=== PATIENT | male | born 1955 | race Caucasian/White ===

== ENCOUNTER 2019-07-03 19:59 | Emergency (ER) | payer OTHER, SELFPAY ==
--- NOTE | ~2019-07-03 | CT_ITS ---
EXAMINATION: CT brain wo con DATE: 07/03/2019 22:43 INDICATION: Syncope. Possible seizure. TECHNIQUE: Computed tomography (CT) of the head was performed without intravenous contrast. The mA wa s adjusted according to patient size. Iterative reconstruction technique was employed. Exam dose: 60 5.33 mGy-cm total exam DLP. COMPARISON: None FINDINGS: No intracranial mass lesion or hemorrhage or evidence of cerebrovascular accident. No midli ne shift or mass effects. No subdural or epidural hematoma. The right mastoid air cells are partially opacified. The left mastoid air cells are clear. The includ ed paranasal sinuses are normally developed and aerated. No fracture or bone destruction of the cranial vault. IMPRESSION: No acute intracranial finding Reviewed, dictated and finalized at Location [facility]. Reviewed, dictated and finalized at location A. TED CIRCUIT BOARD DESIGNER
[2019-07-03 20:05] VITALS: BP 103/58; PULSE 79; RESP 18; TEMP 36.9; O2SAT 100
--- NOTE | 2019-07-03 20:07 | ECG_ITS ---
Measurements Intervals [place] Rate: 68 P: 65 ID: 143 QRS: 45 QRSD: 109 T: 32 QT: 402 QTc: 430 Interpretive Statements SINUS RHYTHM NORMAL ECG Electronically Signed On 07-04-2019 8:05:15 BANK REPRESENTATIVE by Jorge Daly D.O.
--- NOTE | 2019-07-03 20:07 | ED.SYNCOPE ---
HPI - Syncope General Chief Complaint: Syncope Stated Complaint: syncope Time Seen by Provider: 07/03/19 20:01 Source: patient, family and RN notes reviewed Mode of arrival: other Limitations: no limitations History of Present Illness HPI narrative: Pt is a 63 y/o male who presents to the ED with c/o syncope that occurred earlier this afternoon. Pt notes that he had 2 drinks of EtOH and had 3-4 puffs of Marijuana. Pt states that he stood up to go to the bathroom and that is all he remembers. Pt's girlfriend states that he has smoked Marijuana before with his girlfriend for the past month and she notes that he has never had his sx before. Pt also reports weakness and nausea, but denies a fever, SOB, chest tightness, and CP. Pt notes that he takes ASA daily. MD complaint: loss of consciousness Context: standing up, alcohol use and illicit drug use Injuries sustained associated with event: none Current symptoms: nausea and weakness Related Data Allergies Allergy/AdvReac Type Severity Reaction Status Date / Time Penicillins Allergy Unknown Unknown Verified 02/24/18 07:49 Review of Systems Review of Systems: All systems reviewed & are unremarkable except as noted in HPI and below Constitutional: Constitutional: Denies fever(s) Cardiovascular: Cardiovascular: Denies chest pain and Denies other (chest tightness) Respiratory: Respiratory: Denies dyspnea Gastrointestinal: Gastrointestinal: Reports nausea Neurologic: Reports syncope and Reports weakness PMFSH Past Medical History Medical History (Updated 07/03/19 @ 23:48 by Hemant Ahn MD) Asthma Hyperlipidemia Seasonal allergies Surgical History Surgical History (Updated 07/03/19 @ 21:28 by Petra Ferrara) H/O eye surgery Family History Family History (Updated 02/26/18 @ 14:35 by DOCTOR UNKNOWN) Grandparent Diabetes mellitus Family history of alcoholism Family history of cardiovascular disease Mother Hypertension Cerebrovascular accident Father Family history of alcoholism Family history of cardiovascular disease Social History Social History (Updated 07/03/19 @ 20:54 by Petra Ferrara) Smoking status: Never smoker Second hand tobacco smoke exposure: No Alcohol intake: current Substance use: current Substance use type: marijuana Gender identity (if verbalized by the patient): Male Exam Const: General: healthy appearing, no acute distress and well developed Nutritional Appearance: well nourished Orientation/consciousness: patient oriented x3 (alert) and Other orientation findings (Alert) Limitations: no limitations HENMT: Head: normocephalic and atraumatic Ears: external ears normal General nose exam: No nasal discharge present and no epistaxis Face and sinus: face symmetric Mouth: Yes lip normal, Yes tongue normal and Yes moist mucous membranes Throat: other (No exudate, no erythema) Eyes: Conjunctivae: conjunctivae normal Sclera: sclerae normal EOM: EOMs intact bilaterally Neck: Neck: full ROM, no lymphadenopathy and supple Thyroid: thyroid normal Chest: Chest palpation & inspection: no tenderness Resp: Effort & Inspection: normal respiratory effort Auscultation: clear to auscultation bilaterally, no rales, no rhonchi, no wheezes and other (breath sounds equal) Cardio: Rate: regular rate Rhythm: regular rhythm Heart sounds: no gallops and no murmurs GI: Inspection: non-distended GI Palp: No abdominal tenderness and Yes Soft to palpation Auscultation: other (bowel sounds present) : General: Yes no CVA tenderness Back/Spine/Pelvis: Back: no CVA tenderness Thoracic/Lumbar Spine: thoracic and lumbar spine normal to inspection Skin: General skin exam: normal color and no rashes or lesions noted Neuro: General: patient oriented x3 (alert), moves all extremities and no focal motor deficits Cranial nerves: Yes facial symmetry Speech: normal speech Motor exam (neuro): Motor abnormalities not
[2019-07-03 20:09] VITALS: O2SAT 98
[2019-07-03 20:22] VITALS: BP 104/67; BP 111/84; BP 112/61; PULSE 67; PULSE 75; PULSE 78
[2019-07-03 20:49] LABS: Basophils Percent Auto 0.5 % (0.2-1.2); Eosinophils Absolute Auto 0.1 K/mm3 (0-0.3); Eosinophils Percent Auto 1.2 % (0-4.4); Hemoglobin 13.3 g/dL (14.0-18.0); Immature Granulocyte Absolute 0.02 K/mm3 (0.00-0.031); Immature Granulocyte Percent A 0.4 % (0-0.5); Lymphocytes Absolute Auto 1.39 K/mm3 (0.9-3.2); Lymphocytes Percent Auto 24.6 % (18.3-44.2); Mean Corpuscular HGB Conc 34.1 g/dl (32-36); Mean Corpuscular Hemoglobin 31.2 pg (26-34); Mean Corpuscular Volume 91.5 fl (80-100); Mean Platelet Volume 9.5 fl (7.4-10.4); Monocytes Absolute Auto 0.5 K/mm3 (0.1-0.6); Monocytes Percent Auto 8.8 % (2.6-8.5); Neutrophils Absolute Auto 3.7 K/mm3 (1.3-6.7); Neutrophils Percent Auto 64.5 % (45.5-73.1); Platelet Count Result 252 k/mm3 (150-375); Red Blood Count 4.26 M/mm3 (4.6-6.20); Red Cell Distribution Width 12.5 % (11.5-14.5); White Blood Count 5.7 K/mm3 (4.5-10.0)
[2019-07-03 21:00] LABS: Alanine Aminotransferase 25 U/L (4-50); Albumin Level 4.3 g/dL (3.5-5.1); Alkaline Phosphatase 46 U/L (38-126); Aspartate Amino Transferase 32 U/L (17-59); Bilirubin,Total 0.3 mg/dL (0.2-1.3); Blood Urea Nitrogen 18 mg/dL (9-20); Calcium 8.7 mg/dL (8.4-10.2); Carbon Dioxide 27 mmol/L (22-30); Chloride 98 mmol/L (98-107); Estimated Glomerular Filt Rate 56; Glucose 135 mg/dL (75-110); Potassium 3.8 mmol/L (3.4-5.0); Sodium 138 mmol/L (137-145)
[2019-07-03 21:02] LABS: Ethanol < 10 mg/dL (<10)
[2019-07-03 21:12] LABS: Troponin I < 0.012 ng/mL (0.000-0.034)
[2019-07-03 21:23] VITALS: BP 124/76; PULSE 78; RESP 16; O2SAT 100
[2019-07-03 22:11] VITALS: BP 120/68; PULSE 85; RESP 20; O2SAT 98
[2019-07-03 22:46] LABS: Troponin I < 0.012 ng/mL (0.000-0.034)
[2019-07-03 23:41] VITALS: BP 126/66; PULSE 84; RESP 18; O2SAT 96
== END 2019-07-04 00:07 | disposition home or self-care (01) ==
PROVIDERS: Emergency Provider Emergency Medicine
DX: R55 Syncope and collapse (principal); J45.909 Unspecified asthma, uncomplicated; E78.5 Hyperlipidemia, unspecified
CPT/HCPCS: 36415; 70450; 80053; 80307; 84484; 85025; 93005; 99284

== ENCOUNTER 2022-04-02 13:55 | Outpatient (CLI) | payer MEDICARE, SELFPAY ==
--- NOTE | ~2022-04-02 | XR_ITS ---
EXAMINATION: XR knee RT min 4V DATE: 04/02/2022 14:53 INDICATION: Right knee pain. Injury. TECHNIQUE: 4 views of right knee were obtained. COMPARISON: None. FINDINGS: Bone alignment is normal. No fracture. There is mild tricompartmental osteoarthritis charac terized by tiny osteophytes. No joint space narrowing. No knee joint effusion. IMPRESSION: 1. Mild right knee osteoarthritis. Reviewed, dictated and finalized at location A. ISH LANGUAGE LECTURER
== END 2022-04-02 13:56 | disposition home or self-care (01) ==
PROVIDERS: PCP Family Medicine; Visit Provider Physician Assistant
DX: M25.569 Pain in unspecified knee (principal); M17.11 Unilateral primary osteoarthritis, right knee
CPT/HCPCS: 73564

== ENCOUNTER 2022-04-24 14:18 | Outpatient (CLI) | payer MEDICARE, SELFPAY ==
--- NOTE | ~2022-04-24 | XR_ITS ---
EXAMINATION: XR chest 2V 04/24/2022 14:34 INDICATION: Acute lower respiratory infection PROCEDURE: PA and lateral views of the chest COMPARISON: No prior studies for comparison. FINDINGS: The lungs are clear. The cardiomediastinal silhouette is within normal limits. There are no pleural effusions. There is no pneumothorax suspected. IMPRESSION: 1: NO ACUTE CARDIOPULMONARY DISEASE. Reviewed, dictated and finalized at location A. ICATION SUPERVISOR
== END 2022-04-24 14:19 | disposition home or self-care (01) ==
LOC: ANHIMG 14:20
PROVIDERS: PCP Family Medicine; Visit Provider Physician Assistant
DX: J22 Unspecified acute lower respiratory infection (principal)
CPT/HCPCS: 71046

== ENCOUNTER 2022-10-30 07:47 | Outpatient (CLI) | payer MEDICARE, SELFPAY ==
--- NOTE | 2022-10-30 11:29 | WPDPFTINT ---
PFT Procedure Performed PFT Procedure Performed Flow Vol Loop Spirometry w/o Bronchodil PFT Interpretation This is a pulmonary function test with spirometry, plethysmography and diffusing capacity. The test was performed and results interpreted in accordance with the 2019 and 2005 ATS/ERS Task Force guidelines respectively using the Global Lung Function Initiative-2012 reference equations. Patient demonstrated good effort and cooperation. Reproducibility criteria were met. The quality of the spirometry maneuver was Grade A. Findings: Spirometry: There is decreased maximal expiratory airflow at all lung volumes with concave expiratory flow tracing. The contour the inspiratory flow tracing is normal. The FVC is 5.24 L, 111% predicted. The FEV1 is 3.08 L, 86% predicted. The FEV1: FVC ratio is 59%. Impression: There is a mild obstructive abnormality with a normal FEV1. There are no prior studies for comparison
== END 2022-10-30 07:48 | disposition home or self-care (01) ==
PROVIDERS: PCP Family Medicine; Visit Provider Family Medicine
DX: J45.20 Mild intermittent asthma, uncomplicated (principal)
CPT/HCPCS: 94375

== ENCOUNTER → 2023-04-08 10:38 | Outpatient (CLI) | payer MEDICARE, SELFPAY ==
--- NOTE | ~2023-04-08 | CT_ITS ---
Non-contrast Head CT History: Headache COMPARISON: 07/03/2019 Technique: Axial non-contrast imaging of the brain was performed. Dose reduction technique was used on this scan by utilizing automated exposure control and iterative reconstruction technique. The dose -length product (DLP) was 599.57 mGy-cm. Findings: There is no evidence of intracranial hemorrhage, mass lesion, or acute infarct. Brain par enchyma appears normal. The ventricles and subarachnoid spaces are normal in size. The calvarium ap pears normal. The visualized paranasal sinuses and mastoid air cells are clear. Impression: No significant abnormality seen. Reviewed, dictated and finalized at location . O CASTER Impression: No significant abnormality seen.
== END ==
PROVIDERS: PCP Physician Assistant Medical; Visit Provider Physician Assistant Medical
DX: G43.909 Migraine, unspecified, not intractable, without status migrainosus (principal)
CPT/HCPCS: 70450

== ENCOUNTER → 2023-07-16 08:38 | Outpatient (CLI) | payer MEDICARE, SELFPAY ==
--- NOTE | ~2023-07-16 | XR_ITS ---
EXAMINATION: XR chest 2V DATE: 07/16/2023 08:45 INDICATION: History of pneumonia TECHNIQUE: PA and lateral views of the chest are obtained. COMPARISON: 04/24/2022 FINDINGS: The lungs are free of acute opacities. No pleural effusion or pneumothorax. The cardiomedia stinal silhouette is normal. There is mild thoracic spondylosis. IMPRESSION: 1. No acute cardiopulmonary abnormality. Reviewed, dictated and finalized at location B. CY MANAGER
== END ==
PROVIDERS: PCP Physician Assistant; Visit Provider Physician Assistant
DX: R05.9 Cough, unspecified (principal)
CPT/HCPCS: 71046

== ENCOUNTER 2023-12-26 09:38 | Outpatient (CLI) | payer MEDICARE, SELFPAY ==
--- NOTE | ~2023-12-26 | XR_ITS ---
EXAMINATION: XR cervical spine 4-5V DATE: 12/26/2023 09:56 INDICATION: Neck pain. TECHNIQUE: 6 views of cervical spine were obtained. COMPARISON: Cervical spine radiographs 09/24/2018 FINDINGS: There is 2 mm retrolisthesis of C5 on C6. There is no abnormal motion with flexion or exten charlee. Vertebral body heights are normal. There is moderately decreased disc height at C4-C5, severely decreased disc height at C5-C6, and moderately decreased disc height at C6-C7. There is multilevel u ncovertebral joint osteoarthritis, severe bilaterally at C5-C6 and C6-C7. There is multilevel facet j oint osteoarthritis, severe at C7-T1. There is mild central canal stenosis at C4-C5, C5-C6, and C6-C7 . No prevertebral soft tissue swelling. IMPRESSION: 1. Severe cervical spondylosis. Reviewed, dictated and finalized at location A.
== END 2023-12-26 09:39 ==
LOC: MICIMG 09:39
PROVIDERS: PCP Family Medicine; Visit Provider Physician Assistant Medical
DX: M43.02 Spondylolysis, cervical region (principal)
CPT/HCPCS: 72050

== ENCOUNTER 2024-04-10 12:10 | Emergency (ER) | payer MEDICARE, SELFPAY ==
[2024-04-10] VITALS (7 sets, daily range): BP systolic 117–148; BP diastolic 70–82; PULSE 78–117; RESP 17–19; TEMP 36.7–37.3; O2SAT 98–100
--- NOTE | ~2024-04-10 | XR_ITS ---
EXAMINATION: XR chest 2V DATE: 04/10/2024 12:52 INDICATION: Epigastric abdominal pain. TECHNIQUE: Frontal and lateral views of the chest were obtained. COMPARISON: Chest 2 views 07/16/2023 FINDINGS: There is no pneumonia, pleural effusion, or pneumothorax. The heart size is normal. IMPRESSION: 1. No acute cardiopulmonary disease. Reviewed, dictated and finalized at location A. FER OPERATOR
--- NOTE | 2024-04-10 12:14 | ECG_ITS ---
Test Date: 2024-04-10 12:20:31 Measurements Intervals [place] Rate: 72 P: 17 TN: 153 QRS: 50 QRSD: 106 T: 44 QT: 385 QTc: 422 Interpretive Statements SINUS RHYTHM BASELINE WANDER- III, AVL, AVF, V5-V6 NORMAL ECG No previous ECG available for comparison Electronically Signed On 04-10-2024 16:25:45 AVID EDITOR by Jorge Daly D.O.
[2024-04-10] MEDS: ASPIRIN 81 MG CHEWABLE TABLET 324 MG PO (12:22)
[2024-04-10 12:30] LABS: Basophils Percent Auto 0.6 % (0.2-1.2); Eosinophils Absolute Auto 0.2 K/mm3 (0-0.3); Eosinophils Percent Auto 2.1 % (0-4.4); Hematocrit 41.4 % (42.0-52.0); Hemoglobin 14.7 g/dL (14.0-18.0); Immature Granulocyte Absolute 0.02 K/mm3 (0.00-0.031); Immature Granulocyte Percent A 0.3 % (0-0.5); Lymphocytes Absolute Auto 2.94 K/mm3 (0.9-3.2); Lymphocytes Percent Auto 40.4 % (18.3-44.2); Mean Corpuscular HGB Conc 35.5 g/dl (32-36); Mean Corpuscular Hemoglobin 31.4 pg (26-34); Mean Corpuscular Volume 88.5 fl (80-100); Mean Platelet Volume 9.2 fl (7.4-10.4); Monocytes Absolute Auto 0.7 K/mm3 (0.1-0.6); Monocytes Percent Auto 10.2 % (2.6-8.5); Neutrophils Absolute Auto 3.4 K/mm3 (1.3-6.7); Neutrophils Percent Auto 46.4 % (45.5-73.1); Platelet Count Result 301 k/mm3 (150-375); Red Blood Count 4.68 M/mm3 (4.6-6.20); Red Cell Distribution Width 12.4 % (11.5-14.5); White Blood Count 7.3 K/mm3 (4.5-10.0)
[2024-04-10 12:40] LABS: Alanine Aminotransferase 41 U/L (6-50); Albumin Level 4.9 g/dL (3.5-5.1); Alkaline Phosphatase 67 U/L (38-126); Anion Gap 8 mmol/L (4-12); Aspartate Amino Transferase 63 U/L (17-59); Bilirubin,Total 0.8 mg/dL (0.2-1.3); Blood Urea Nitrogen 19 mg/dL (9-20); Calcium 9.1 mg/dL (8.4-10.2); Carbon Dioxide 25 mmol/L (22-30); Chloride 104 mmol/L (98-107); Estimated CRCL calculation 86 ml/min; Estimated Glomerular Filt Rate > 60; Glucose 104 mg/dL (65-110); Lipase 108 U/L (23-300); Potassium 4.2 mmol/L (3.4-5.0); Sodium 137 mmol/L (137-145)
[2024-04-10 12:45] LABS: INR 0.9; Partial Thromboplastin Time 26.6 Seconds (22.3-36.8); Prothrombin Time 12.8 Seconds (11.1-14.7)
[2024-04-10 12:52] LABS: Troponin I < 0.012 ng/mL (0.000-0.034)
--- NOTE | 2024-04-10 14:49 | ED_ITS ---
HPI - Chest Pain General Chief Complaint: Chest Pain Stated Complaint: epigastric pain Time Seen by Provider: 04/10/24 13:32 History of Present Illness HPI narrative: 68-year-old male with a history of hypertension presenting with epigastric pain. States several hours ago he developed sharp epigastric pain that was worse with movements. No shortness of breath or lightheadedness. Associated with nausea. States that eating or drinking anything sounds foul. States that the pain has improved. States he has been struggling with heartburn lately. Related Data Home Medications Medication Instructions Recorded Confirmed beta vvkgbxun-Q-E-lutein-min #29 tablet PO 07/05/19 07/21/23 5,000 unit-60 mg-30 unit-2 mg tablet (Macuvite With Lutein) multivitamin 1 tablet PO DAILY 07/05/19 07/21/23 cetirizine 10 mg tablet (Zyrtec) 10 mg PO DAILY PRN 07/12/21 07/21/23 Allergies Allergy/AdvReac Type Severity Reaction Status Date / Time Penicillins Allergy Unknown Unknown Verified 12/25/23 13:36 mometasone furoate AdvReac Severe chest Verified 12/25/23 13:36 [From Asmanex Twisthaler] burning Review of Systems Review of Systems: All systems reviewed & are unremarkable except as noted in HPI and below PMFSH Past Medical History Medical History Asthma Bilateral hearing loss got hearing aids in August 2021 BMI 30.0-30.9,adult CKD (chronic kidney disease) stage 3, GFR 30-59 ml/min COPD (chronic obstructive pulmonary disease) CRISTINA (generalized anxiety disorder) Hyperlipidemia Pneumonia Primary hypertension Seasonal allergies Surgical History Surgical History H/O eye surgery Family History Family History Grandparent Diabetes mellitus Family history of alcoholism Family history of cardiovascular disease Mother Hypertension Cerebrovascular accident Father Family history of alcoholism Family history of cardiovascular disease Son Psoriatic arthritis Social History Social History Smoking status: Never smoker Second hand tobacco smoke exposure: No Alcohol intake: current Alcohol use details: once a month, a few beers Substance use: current Substance use type: marijuana Other substance usage details: edibles, once a month at most Lack of Transportation: No Lack of Food: Never True Current Housing: I Have Housing Concerned About Future Housing: No Difficulty Paying Gas/Electric Bills: No Difficulty Paying for Meds: No Currently Unemployed: No Education: Associate Degree Difficulty w/ Childcare or Family Care: No Occupation/Education: retired Gender identity (if verbalized by the patient): Male Exam Narrative: GENERAL: Well-appearing, in no acute distress, pleasant and cooperative HEAD: Normocephalic, atraumatic. EYES: PERRLA and EOMI. ENT: Grossly unremarkable NECK: Supple. CHEST: No respiratory distress. HEART: Regular rate and rhythm ABDOMEN: Soft, + mild epigastric tenderness, no guarding or rebound EXTREMITIES: Normal range of motion. SKIN: Warm, dry, no rash. NEURO: Alert and oriented x3. PSYCH: Normal mood and affect. Course Vital Signs Vital signs: Vital Signs Pulse Rate 78 04/10/24 12:22 Temperature 99.1 F 04/10/24 18:37 Pulse Rate 117 H 04/10/24 18:43 Respiratory Rate 19 04/10/24 18:37 Blood Pressure 117/71 04/10/24 18:37 Pulse Oximetry 100 04/10/24 18:37 MDM - Chest Pain MDM Narrative Medical decision making narrative: 68-year-old male presenting with epigastric pain. Vitals are stable. Exam remarkable for the above. EKG per my interpretation shows normal sinus rhythm, no ST elevations or depressions. Blood work without abnormalities. Troponins undetectable x3. Patient given IV Pepcid and a GI cocktail. States that it did help his epigastric discomfort but then he had an episode of vomiting. Received some Zofran with improvement. Chest x-ray without acute abnormalities. Discussed the reassuring workup with the patient. He feels comfortable going home. I suspect esophagitis/gastritis as the cause of his symptoms. Will get him started on daily famotidine and advised close PCP follow-up. Strict return precautions given. Discharged in stable condition. Differential Diagnosis Differential diagnosis: Likely atypical chest pain, costochondritis, chest pain and other (Epigastric pain, gastritis, esophagitis) Medical Records Data Attestation: I reviewed the patient's medical records. Lab Data Attestation: I reviewed the patient's lab results. 04/10/24 12:24 04/10/24 12:24 Labs: Lab Results 04/10/24 04/10/24 04/10/24 Range/Units 12:24 15:42 18:29 WBC 7.3 (4.5-10.0) K/mm3 RBC 4.68 (4.6-6.20) M/mm3 Hgb 14.7 (14.0-18.0) g/dL Hct 41.4 L (42.0-52.0) % MCV 88.5 (80-100) fl MCH 31.4 (26-34) pg MCHC 35.5 (32-36) g/dl RDW 12.4 (11.5-14.5) % Plt Count 301 (150-375) k/mm3 MPV 9.2 (7.4-10.4) fl Immature Gran % (Auto) 0.3 (0-0.5) % Neut % (Auto) 46.4 (45.5-73.1) % Lymph % (Auto) 40.4 (18.3-44.2) % [place] % (Auto) 10.2 H (2.6-8.5) % Eos % (Auto) 2.1 (0-4.4) % Baso % (Auto) 0.6 (0.2-1.2) % Lymph # (Auto) 2.94 (0.9-3.2) K/mm3 [place] # (Auto) 0.7 H (0.1-0.6) K/mm3 Eos # (Auto) 0.2 (0-0.3) K/mm3 Baso # (Auto) 0.0 (0.0-0.1) K/mm3 Abs Immat Gran (auto) 0.02 (0.00-0.031) K/mm3 Absolute Neuts (auto) 3.4 (1.3-6.7) K/mm3 Absolute Nucleated RBC 0.000 (0.0-0.012) K/mm3 Nucleated RBC % 0.0 (0.0-0.2) % PT 12.8 (11.1-14.7) Seconds INR 0.9 APTT 26.6 (22.3-36.8) Seconds Sodium 137 (137-145) mmol/L Potassium 4.2 (3.4-5.0) mmol/L Chloride 104 (98-107) mmol/L Carbon Dioxide 25 (22-30) mmol/L Anion Gap 8 (4-12) mmol/L BUN 19 (9-20) mg/dL Creatinine 0.80 (0.7-1.3) mg/dL Estim Creat Clear Calc 86 ml/min Estimated GFR > 60 (59 - ) Glucose 104 (65-110) mg/dL Calcium 9.1 (8.4-10.2) mg/dL Total Bilirubin 0.8 (0.2-1.3) mg/dL AST 63 H (17-59) U/L ALT 41 (6-50) U/L Alkaline Phosphatase 67 (38-126) U/L Troponin I < 0.012 < 0.012 < 0.012 (0.000-0.034) ng/mL Total Protein 8.0 (6.3-8.2) g/dL Albumin 4.9 (3.5-5.1) g/dL Lipase 108 (23-300) U/L Imaging Data Radiologist's impression: ITS Impressions Chest X-Ray 04/10/24 13:00 IMPRESSION: 1. No acute cardiopulmonary disease. Critical Care Time Critical Care Time Critical Care Time: No Discharge Plan Discharge Clinical Impression: Epigastric pain, Nausea & vomiting Patient Disposition: Home, Self-Care Condition: Stable Instructions: Antibiotic Form, Epigastric Pain (ED) Additional Instructions: Your workup today is reassuring. We are starting you on a daily antacid to help with your symptoms. Please follow-up closely with your PCP. If your symptoms worsen or other concerning symptoms arise, please return to the ER. Prescriptions: New famotidine [Pepcid] 20 mg tablet 20 mg PO DAILY Qty: 30 0RF ondansetron 4 mg tablet,disintegrating 4 mg PO Q8H PRN (Reason: nausea and vomiting) Qty: 14 0RF No Action multivitamin Tablet 1 tablet PO DAILY Macuvite With Lutein 5,000-60-30-2 ewzy-hw-isst-mg tablet PO cetirizine [Zyrtec] 10 mg tablet 10 mg PO DAILY PRN albuterol sulfate [Ventolin HFA] 90 mcg/actuation HFA aerosol inhaler 1 inh inhalation Q4H PRN (Reason: shortness of breath or wheezing) Qty: 8.5 3RF (DME) Airzone Peak Flow Meter Device See Rx Instructions .Route Qty: 1 0RF Rx Instructions: As directed (DME) Aerochamber MV Spacer See Rx Instructions .ROUTE .MEDSUPPLY Qty: 1 0RF Rx Instructions: As directed albuterol sulfate 2.5 mg /3 mL (0.083 %) solution for nebulization 2.5 mg inhalation Q4-6H PRN (Reason: bronchospasm) Qty: 75 0RF fluticasone propion-salmeterol [Advair HFA] 230-21 mcg/actuation HFA aerosol inhaler 2 puff inhalation BID Qty: 12 6RF lisinopril 10 mg tablet See Rx Instructions .ROUTE .COMPLEX Qty: 90 4RF Dose Instruction: Take 1 tablet by mouth once daily Rx Instructions: Take 1 tablet by mouth once daily montelukast 10 mg tablet 10 mg PO QHS Qty: 30 3RF Follow-up/Referrals: Dana Ritchie MD [Primary Care Provider] -
[2024-04-10] MEDS: FAMOTIDINE 20 MG/2 ML VIAL IV PUSH (15:07)
[2024-04-10] MEDS: BELLADONNA ALK/PHENOB ELIX 10 ML, MAG HYDROX/ALUMINUM HYD/SIMETH 30 ML, LIDOCAINE HCL 2... PO (15:07)
--- NOTE | 2024-04-10 15:33 | ECG_ITS ---
Test Date: 2024-04-10 15:42:03 Measurements Intervals [place] Rate: 90 P: 59 ME: 158 QRS: 35 QRSD: 96 T: 44 QT: 340 QTc: 417 Interpretive Statements SINUS RHYTHM BASELINE ARTIFACT- I, II, III, AVR, AVL, AVF, V1-V3 NORMAL ECG Compared to ECG 04/10/2024 12:20:31 No significant changes Electronically Signed On 04-10-2024 16:34:11 FORMULA CHECKER by Jorge Daly D.O.
[2024-04-10 16:09] LABS: Troponin I < 0.012 ng/mL (0.000-0.034)
[2024-04-10] MEDS: SODIUM CHLORIDE 0.9% IV 1,000 ML 999 ML IV CONT (16:29)
[2024-04-10] MEDS: ONDANSETRON INJ 4 MG/2 ML VIAL IV PUSH ×2 (16:30→19:14)
--- NOTE | 2024-04-10 18:34 | ECG_ITS ---
Test Date: 2024-04-10 18:39:29 Measurements Intervals [place] Rate: 107 P: 29 CO: 120 QRS: 24 QRSD: 85 T: 46 QT: 314 QTc: 420 Interpretive Statements SINUS TACHYCARDIA BASELINE ARTIFACT- I, III ABNORMAL ECG Compared to ECG 04/10/2024 15:42:03 HEART RATE HAS INCREASED Electronically Signed On 04-10-2024 20:49:27 MACHINE ICER by Jorge Daly D.O.
[2024-04-10 18:55] LABS: Troponin I < 0.012 ng/mL (0.000-0.034)
== END 2024-04-10 19:58 | disposition home or self-care (01) ==
PROVIDERS: Emergency Medicine; Emergency Provider Emergency Medicine; PCP Family Medicine
DX: R10.13 Epigastric pain (principal); R11.2 Nausea with vomiting, unspecified; I12.9 Hypertensive chronic kidney disease with stage 1 through stage 4 chronic kidney disease, or unspecified chronic kidney disease; N18.30 Chronic kidney disease, stage 3 unspecified; J44.9 Chronic obstructive pulmonary disease, unspecified; E78.5 Hyperlipidemia, unspecified; Z87.01 Personal history of pneumonia (recurrent); R00.0 Tachycardia, unspecified
CPT/HCPCS: 36415; 71046; 80053; 83690; 84484; 85025; 85610; 85730; 93005; 96361; 96374; 96375; 96376; 99284; A9270; J2405; J7030

== ENCOUNTER 2024-04-13 12:03 | Outpatient (CLI) | payer MEDICARE, SELFPAY ==
[2024-04-13 13:14] LABS: Influenza A QL RT-PCR Negative (Negative); Influenza B QL RT-PCR Negative (Negative); RSV RNA, RT-PCR Negative (Negative); SARS-CoV-2 RNA PCR Negative (Negative)
== END 2024-04-13 12:04 | disposition home or self-care (01) ==
LOC: ANHLAB 12:04
PROVIDERS: PCP Family Medicine; Visit Provider Student in an Organized Health Care Education/Training Program
DX: R09.89 Other specified symptoms and signs involving the circulatory and respiratory systems (principal); R05.9 Cough, unspecified
CPT/HCPCS: 87637

== ENCOUNTER 2024-06-16 00:41 | Day surgery (SDC) | payer MEDICARE, SELFPAY ==
[2024-06-01 11:29] VITALS: BMI 29.2
[2024-06-16 10:06] VITALS: BP 136/75; PULSE 79; RESP 18; TEMP 36.2; O2SAT 99
--- NOTE | 2024-06-16 10:10 | WPDANESEPP ---
Anes - Eval Pre Procedure Procedure: Operation Date: 06/16/24 11:30 Proposed Procedures p Esophagogastroduodenoscopy - Cliff Falcon MD Date/Time: 06/16/24 10:10 Surgeon: Ezekiel Pre Op Diagnosis: epigastric pain, lft upper quad pain, nausea w/ Patient Data Age: 68 Gender: M Height: 1.83 m Weight: 101.5 kg Last Vital Signs Temp 97.1 F L 06/16/24 10:06 Pulse 79 06/16/24 10:06 Resp 18 06/16/24 10:06 BP 136/75 06/16/24 10:06 Pulse Ox 99 06/16/24 10:06 O2 Del Method Room Air 06/16/24 10:06 Allergies Allergy/AdvReac Type Severity Reaction Status Date / Time Penicillins Allergy Unknown Unknown Verified 06/16/24 10:05 mometasone furoate (From AdvReac Severe chest Verified 06/16/24 10:05 Asmanex Twisthaler) burning Home Medications ?Medication ?Instructions ?Recorded ?Confirmed ?Type beta liosjcau-Y-V-lutein-min #29 1 tablet PO DAILY 07/05/19 06/16/24 History 5,000 unit-60 mg-30 unit-2 mg tablet (Macuvite With Lutein) multivitamin 1 tablet PO DAILY 07/05/19 06/16/24 History inhalational spacing device #1 ea 10/29/19 04/13/24 Rx (Aerochamber MV spacer) cetirizine 10 mg tablet (Zyrtec) 10 mg PO DAILY PRN allergy symptoms 07/12/21 06/16/24 History albuterol sulfate 90 mcg/actuation 1 inh inhalation Q4H PRN shortness 11/06/21 06/01/24 Rx aerosol inhaler (Ventolin HFA) of breath or wheezing #8.5 grams peak flow meter (Airzone Peak Flow #1 ea 09/11/22 04/13/24 Rx Meter) albuterol sulfate 2.5 mg/3 mL 2.5 mg (3 mL) inhalation Q4-6H PRN 07/11/23 06/01/24 Rx (0.083 %) solution for nebulization bronchospasm #75 mL ondansetron 4 mg disintegrating 4 mg PO Q8H PRN nausea and 04/10/24 06/01/24 Rx tablet vomiting #14 tabs omeprazole 20 mg capsule,delayed 20 mg PO DAILY #30 caps 04/13/24 06/16/24 Rx release fluticasone propionate 230 2 puff inhalation BID #12 grams 05/20/24 06/16/24 Rx mcg-salmeterol 21 mcg/actuation HFA inhaler (Advair HFA) montelukast 10 mg tablet 10 mg PO QHS #30 tabs 05/20/24 06/16/24 Rx lisinopril 5 mg tablet 10 mg PO DAILY 06/01/24 06/16/24 History Patient hx anesthesia problems: none Family hx anesthesia problems: none Results Review: All pre-operative results and documents have been reviewed as part of the pre-operative evaluation. [facility] Past Medical History Medical History YVONNE (obstructive sleep apnea) COPD (chronic obstructive pulmonary disease) Pneumonia Bilateral hearing loss got hearing aids in August 2021 BMI 30.0-30.9,adult Primary hypertension CRISTINA (generalized anxiety disorder) CKD (chronic kidney disease) stage 3, GFR 30-59 ml/min Asthma Seasonal allergies Hyperlipidemia Surgical History Surgical History H/O eye surgery Family History Family History Grandparent Diabetes mellitus Family history of alcoholism Family history of cardiovascular disease Mother Hypertension Cerebrovascular accident Father Family history of alcoholism Family history of cardiovascular disease Son Psoriatic arthritis Social History Social History Smoking status: Never smoker Second hand tobacco smoke exposure: No Alcohol intake: current Alcohol use details: once a month, a few beers Substance use: current Substance use type: marijuana Other substance usage details: edibles, once a month at most Lack of Transportation: No Lack of Food: Never True Current Housing: I Have Housing Concerned About Future Housing: No Difficulty Paying Gas/Electric Bills: No Difficulty Paying for Meds: No Currently Unemployed: No Education: Associate Degree Difficulty w/ Childcare or Family Care: No Living arrangements: with family Occupation/Education: retired Gender identity (if verbalized by the patient): Male Spiritual care concerns: No Exam Day of Procedure 06/16/24 10:10
[2024-06-16] MEDS: LACTATED RINGERS 1,000 ML 150 ML IV CONT (10:18)
--- NOTE | 2024-06-16 11:37 | PM.IMHP ---
H&P: HPI History of Present Illness Date/Time: 06/16/24 11:37 Chief Complaint: Epigastric pain Narrative: the patient has been experiencing frequent episodes of severe epigastric pain, sharp type, not relieved by antacids. This has been happening for the past 2 months, however since he started taking omeprazole, the symptoms have ameliorated significantly. He denies heartburn, dysphagia, nausea, vomiting, unintentional weight loss, rectal bleeding melena or abdominal pain in other locations. He is here for EGD Which he never had before. Review of Systems Review of Systems: All systems reviewed & are unremarkable except as noted in HPI and below PMFSH Past Medical History Medical History YVONNE (obstructive sleep apnea) COPD (chronic obstructive pulmonary disease) Pneumonia Bilateral hearing loss got hearing aids in August 2021 BMI 30.0-30.9,adult Primary hypertension CRISTINA (generalized anxiety disorder) CKD (chronic kidney disease) stage 3, GFR 30-59 ml/min Asthma Seasonal allergies Hyperlipidemia Surgical History Surgical History H/O eye surgery Family History Family History Grandparent Diabetes mellitus Family history of alcoholism Family history of cardiovascular disease Mother Hypertension Cerebrovascular accident Father Family history of alcoholism Family history of cardiovascular disease Son Psoriatic arthritis Social History Social History Smoking status: Never smoker Second hand tobacco smoke exposure: No Alcohol intake: current Alcohol use details: once a month, a few beers Substance use: current Substance use type: marijuana Other substance usage details: edibles, once a month at most Lack of Transportation: No Lack of Food: Never True Current Housing: I Have Housing Concerned About Future Housing: No Difficulty Paying Gas/Electric Bills: No Difficulty Paying for Meds: No Currently Unemployed: No Education: Associate Degree Difficulty w/ Childcare or Family Care: No Living arrangements: with family Occupation/Education: retired Gender identity (if verbalized by the patient): Male Spiritual care concerns: No Meds Home Medications and Allergies Home Medications ?Medication ?Instructions ?Recorded ?Confirmed ?Type beta fnoanfia-F-C-lutein-min #29 1 tablet PO DAILY 07/05/19 06/16/24 History 5,000 unit-60 mg-30 unit-2 mg tablet (Macuvite With Lutein) multivitamin 1 tablet PO DAILY 07/05/19 06/16/24 History inhalational spacing device #1 ea 10/29/19 04/13/24 Rx (Aerochamber MV spacer) cetirizine 10 mg tablet (Zyrtec) 10 mg PO DAILY PRN allergy symptoms 07/12/21 06/16/24 History albuterol sulfate 90 mcg/actuation 1 inh inhalation Q4H PRN shortness 11/06/21 06/01/24 Rx aerosol inhaler (Ventolin HFA) of breath or wheezing #8.5 grams peak flow meter (Airzone Peak Flow #1 ea 09/11/22 04/13/24 Rx Meter) albuterol sulfate 2.5 mg/3 mL 2.5 mg (3 mL) inhalation Q4-6H PRN 07/11/23 06/01/24 Rx (0.083 %) solution for nebulization bronchospasm #75 mL ondansetron 4 mg disintegrating 4 mg PO Q8H PRN nausea and 04/10/24 06/01/24 Rx tablet vomiting #14 tabs omeprazole 20 mg capsule,delayed 20 mg PO DAILY #30 caps 04/13/24 06/16/24 Rx release fluticasone propionate 230 2 puff inhalation BID #12 grams 05/20/24 06/16/24 Rx mcg-salmeterol 21 mcg/actuation HFA inhaler (Advair HFA) montelukast 10 mg tablet 10 mg PO QHS #30 tabs 05/20/24 06/16/24 Rx lisinopril 5 mg tablet 10 mg PO DAILY 06/01/24 06/16/24 History Allergies Allergy/AdvReac Type Severity Reaction Status Date / Time Penicillins Allergy Unknown Unknown Verified 06/16/24 10:05 mometasone furoate (From AdvReac Severe chest Verified 06/16/24 10:05 Asmanex Twisthaler) burning Vital Signs Vital Signs - 24 hr 06/16/24 10:06 Temperature 97.1 F L Pulse Rate 79 Respiratory Rate 18 Blood Pressure 136/75 Pulse Oximetry 99 Oxygen Delivery Room Air Exam Const: General: cooperative and healthy appearing Resp: Effort & Inspection: normal respiratory effort and able to speak in complete sentences Auscultation: clear to auscultation bilaterally Cardio: Rate: regular rate Rhythm: regular rhythm GI: Inspection: normal to inspection GI Palp: No No hepatosplenomegaly present Auscultation: normal bowel sounds Rectal Exam: deferred Skin: General skin exam: normal color Psych: Appearance: grossly normal Mental Status: mental status grossly normal Assessment and Plan Assessment and plan (1) Epigastric pain: Code(s): R10.13 - Epigastric pain Status: Inactive Assessment and Plan: The patient is deemed a good candidate for the procedure. Consent signed. Will proceed.
[2024-06-16] MEDS: BENZOCAINE (*SP) 60 ML SPRAY CAN (HURRICAINE) 1 SPRAY MUCOUS MEM (11:45)
[2024-06-16 11:58] VITALS: BP 95/54; PULSE 85; RESP 18; O2SAT 100
[2024-06-16 12:08] VITALS: BP 97/58; PULSE 76; RESP 18; O2SAT 100
[2024-06-16 12:18] VITALS: BP 123/71; PULSE 76; RESP 20; O2SAT 99
--- OUTSIDE RECORDS SUMMARY | 2024-06-17 20:54 | XMS_ITS | Continuity of Care Document ---
Author Organization [facility] Address [address] [place] [address] [facility] [address] [place] [address] Phone Care Team Providers Care Recreation Coordinator Name Role Phone Zana Pettit DO Unavailable Unavailable Advance Directives Directive Yes / No Effective Date File Name No Information Encounters Encounter Description Practice Location Reason(s) For Visit Diagnoses Date Provider Providers Copied on Encounter [facility], [address], [place], [place], [id number], tel:[phone] [facility] No Information Hodan Young. [address] [place], [address], . tel: [phone] Family History Family Member Type Diagnosis Age At Onset No Information Payers Payer name Insurance type Covered republican ID Authoriza tion(s) No Information Social History Type Description Quantity Date Captured Comments Sex Male Smoking Status No Information Chief Complaint And Reason For Visit No Information Reason For Referral Reason For Referral No Information History Of Present Illness Encounter Date Complaint History Of Prese nt Illness No Information Functional Status Date Functional Assessmen t No Information Instructions Date Instruction Additional Infor mation No Information Assessments Type Assessment Date No Information Patient Care Teams Name Effective Dates (start - stop) Status Members No Information
--- OUTSIDE RECORDS SUMMARY | 2024-06-17 20:54 | XMS_ITS | Clinical Summary ---
Author Organization [facility] Address [address] [place] [address] Care Team Providers Care Diamond Powder Mixer Name Role Phone Coco Dukes MD Primary Care Provider [phone] Source Comments [facility],non-owned Affiliates and Associated Physician Practices is amultiple site organization consisting of ambulatory clinics and hospital sitesin [place], [place], [place] and [place]. This disclosure is being madepursuant to the Care Everywhere program and may not contain all information available regarding this patient. Last updated 18.[facility] Allergies Active Allergy Reactions Criticality Noted Date Comments Penicillins Rash Medium 03/30/2019 Medications * Be aware that medications may not be up to date on this document. Alwaysverify current medications with the patient. Medication Sig Dispensed Refills Start Date End Date Status Albuterol Sulfate (PROAIR HFA IN) Inhale by mouth as needed Active Active Problems No known active problems Family History Medical History Relation Name Comments CAD (Coronary Artery Disease) Father Hypertension Mother High Cholesterol Sister Hypertension Sister Relation Name Status Comments Father Mother Sister Social History Tobacco Use Types Packs/Day Years Used Date Smoking Tobacco: Never Smokeless Tobacco: Never Alcohol Use Standard Drinks/Week Comments Yes 0 (1 standard drink = 0.6 oz pur e alcohol) occasionally Sex and Gender Information Value Date Recorded Sex Assigned at Not on file Gender Identity Not on file Sexual Orientation Not on file Last Filed Vital Signs Vital Sign Reading Time Taken Comments Blood Pressure 138/90 03/30/2019 2:21 PM DENTAL OFFICE RECEPTIONIST Pulse 76 03/30/2019 2:21 PM DENTAL OFFICE RECEPTIONIST Temperature 36.7 ??C (98 ??F) 03/30/2019 2:21 PM DENTAL OFFICE RECEPTIONIST Respiratory Rate 16 03/30/2019 2:21 PM DENTAL OFFICE RECEPTIONIST Oxygen Saturation 96% 03/30/2019 2:21 PM DENTAL OFFICE RECEPTIONIST Inhaled Oxygen Concentration - - Weight 100.7 kg (222 lb) 03/30/2019 2:21 PM DENTAL OFFICE RECEPTIONIST Height 182.9 cm (6') 03/30/2019 2:21 PM DENTAL OFFICE RECEPTIONIST Body Mass Index 30.11 03/30/2019 2:21 PM DENTAL OFFICE RECEPTIONIST Plan of Treatment Health Maintenance Due Date Last Done Comments COLOGUARD (AGES 45-75) - COL ON CA SCREENING 1956 COLON MONITORING 1956 COLONOSCOPY - COLON CA SCREENING 1956 CT COLONOGRAPHY - COLON CA SCREENING 1955 Colorectal Cancer Screening 1956 FIT - COLON CA SCREENING 1956 FLEX SIG - COLON CA SCREENING 1956 LIPID TESTING 1956 HEPATITIS C SCREENING 06/30/1974 DTAP/TDAP/TD VACCINES (1 - Tdap) 1975 PNEUMOCOCCAL VACCINE 50+ (1 of 1 - PCV) 2006 ZOSTER VACCINE (1 of 2) 2006 SCREENING FOR DIABETES 03/30/2019 COVID-19 VACCINE (1 - 2023-2 5 season) 2024 INFLUENZA VACCINE (#1) 2024 DEPRESSION SCREENING 05/26/2024 Respiratory Syncytial Virus (RSV) Vaccine Pt: or over 60 yrs (1 - 1-dose 75+ series) 2031 HEPATITIS B VACCINE Aged Out No longe r eligible based on patient's age to complete this topic HIB VACCINE Aged Out No longer eligi ble based on patient's age to complete this topic HPV VACCINE Aged Out No longer eligi ble based on patient's age to complete this topic MENINGOCOCCAL (Group B) VACCINE Aged Out No longer eligible based on patient's age to complete this topic MENINGOCOCCAL VACCINE Aged Out No colleen juice eligible based on patient's age to complete this topic Care Teams Diamond Powder Mixer Relationship Specialty Start Date End Date Coco Dukes MD PCP - General Family Medicine 03/30/19
--- OUTSIDE RECORDS SUMMARY | 2024-06-17 20:54 | XMS_ITS | Patient Health Summary ---
Author Organization [facility] Address [address] [place] [address] Care Team Providers Care Geothermal Sheet Metal Worker Name Role Phone Coco Dukes MD Primary Care Provider [phone] Note from [facility],non-owned Affiliates and Associated Physician Practices is amultiple site organization consisting of ambulatory clinics and hospital sitesin [place], [place], [place] and [place]. This disclosure is being madepursuant to the Care Everywhere program and may not contain all information available regarding this patient. Last updated 18.[facility] Allergies * Penicillins(Rash) -Medium Criticality Medications * Be aware that medications may not be up to date on this document. Alwaysverify current medications with the patient. * Albuterol Sulfate (PROAIR HFA IN) Inhale by mouth as needed Active Problems No known active problems Social History Tobacco Use Types Packs/Day Years [...] Comments Blood Pressure 138/90 03/30/2019 2:21 PM GEOGRAPHIC INFORMATION SYSTEM SURVEYOR Pulse 76 03/30/2019 2:21 PM GEOGRAPHIC INFORMATION SYSTEM SURVEYOR Temperature 36.7 ??C (98 ??F) 03/30/2019 2:21 PM GEOGRAPHIC INFORMATION SYSTEM SURVEYOR Respiratory Rate 16 03/30/2019 2:21 PM GEOGRAPHIC INFORMATION SYSTEM SURVEYOR Oxygen Saturation 96% 03/30/2019 2:21 PM GEOGRAPHIC INFORMATION SYSTEM SURVEYOR Inhaled Oxygen Concentration - - Weight 100.7 kg (222 lb) 03/30/2019 2:21 PM GEOGRAPHIC INFORMATION SYSTEM SURVEYOR Height 182.9 cm (6') 03/30/2019 2:21 PM GEOGRAPHIC INFORMATION SYSTEM SURVEYOR Body Mass Index 30.11 03/30/2019 2:21 PM GEOGRAPHIC INFORMATION SYSTEM SURVEYOR Care Teams Geothermal Sheet Metal Worker Relationship Specialty Start Date End Date Coco Dukes MD PCP - General Family Medicine 03/30/19
--- OUTSIDE RECORDS SUMMARY | 2024-06-17 20:54 | XMS_ITS | Clinical Summary ---
Author Organization [facility] Address [address] [place] [address]. [place], [place] [id number] [place] [address] Care Team Providers Care Credit Rating Checker Name Role Phone Dana Ritchie MD Primary Care Provider [phone] Allergies Active Allergy Reactions Criticality Noted Date Comments Penicillins Unknown 05/26/2023 Medications lisinopril (PRINIVIL) 10 MG tablet Take 1 tablet (10 mg total) by mouth daily. Active cetirizine (ZYRTEC) 10 MG tablet Take 1 tablet (10 mg total) by mouth daily. Active montelukast (SINGULAIR) 10 MG tablet Take 1 tablet (10 mg total) by mouth nightly at bedtime. Active azithromycin (ZITHROMAX Z-TAE) 250 MG tablet Take 2 tabs on Day 1, then 1 tab on days 2-5 6 tablet 4 Active albuterol (PROVENTIL) (2.5 MG/3ML) 0.083% nebulizer solution Take 3 mLs (2.5 mg total) by nebulization every 4 (four) hours as needed for Wheezing. 75 mL 4 Active albuterol (ACCUNEB) 1.25 MG/3ML nebulizer solution Take 3 mLs (1.25 mg total) by nebulization every 4 (four) hours as needed. Active Active Problems Problem Noted Date Diagnosed Date Neck pain 01/13/2024 Social History Tobacco Use Types Packs/Day Years Used Date Smoking Tobacco: Never Passive Smoke Exposure: Never Smokeless Tobacco: Never Tobacco Cessation:Counseling Given: Not Answered Alcohol Use Standard Drinks/Week Comments Not Currently 0 (1 standard drink = 0.6 oz pur e alcohol) Sex and Gender Information Value Date Recorded Sex Assigned at Not on file Legal Sex Male 7:27 PM MILIEU COUNSELOR Gender Identity Not on file Sexual Orientation Not on file Last Filed Vital Signs Vital Sign Reading Time Taken Comments Blood Pressure 106/56 05/29/2023 10:50 PM MILIEU COUNSELOR Pulse 92 05/29/2023 10:50 PM MILIEU COUNSELOR Temperature 37 ??C (98.6 ??F) 05/29/2023 8:01 PM MILIEU COUNSELOR Respiratory Rate 17 05/29/2023 10:50 PM MILIEU COUNSELOR Oxygen Saturation 93% 05/29/2023 10:50 PM MILIEU COUNSELOR Inhaled Oxygen Concentration - - Weight 99.8 kg (220 lb) 05/26/2023 7:38 PM MILIEU COUNSELOR Height 182.9 cm (6') 05/26/2023 7:38 PM MILIEU COUNSELOR Body Mass Index 29.84 05/26/2023 7:38 PM MILIEU COUNSELOR Plan of Treatment Health Maintenance Due Date Last Done Comments Colorectal Cancer Screening Colonoscopy (10 Years) 1956 Hepatitis C 1974 Zoster Vaccines (1 of 2) 2006 Annual Medicare Wellness Visit 2021 COVID-19 Vaccine (4 - 2023-2 5 season) 2024 06/07/2021, 09/09/2020, 08/12/2020 Influenza Adult (#1) 2024 03/06/2019 DTaP, Tdap and Td Vaccines ( 3 - Td or Tdap) 03/06/2029 03/06/2019, 07/13/2008 RSV Immunization or 60+ Years (1 - 1-dose 75+ series) 2031 Pneumococcal Vaccine: 65+ Years Completed 04/09/2022 Meningococcal Vaccine Aged Out No colleen juice eligible based on patient's age to complete this topic RSV Immunizations Under 20 Months Aged Out No longer eligible b ased on patient's age to complete this topic Insurance [employer] Care Teams Credit Rating Checker Relationship Specialty Start Date End Date Dana Ritchie MD [address] [place] [address] PCP - General FAMILY PRACTICE 05/26/23
--- OUTSIDE RECORDS SUMMARY | 2024-06-17 20:54 | XMS_ITS | Referral Summary ---
Author Organization [facility] Address [address] [place] [address] Care Team Providers Care Patient Transport Officer Name Role Phone Coco Dukes MD Primary Care Provider [phone] Source Comments [facility],non-owned Affiliates and Associated Physician Practices is amultiple site organization consisting of ambulatory clinics and hospital sitesin [place], [place], [place] and [place]. This disclosure is being madepursuant to the Care Everywhere program and may not contain all information available regarding this patient. Last updated 18.[facility] Allergies Active Allergy Reactions Criticality Noted Date Comments Penicillins Rash Medium 03/30/2019 Medications * Be aware that medications may not be up to date on this document. Alwaysverify current medications with the patient. Medication Sig Dispensed Refills Start Date End Date Status Albuterol Sulfate (PROAIR HFA IN) Inhale by mouth as needed Active Active Problems No known active problems Social [...] Comments Blood Pressure 138/90 03/30/2019 2:21 PM FORENSIC PSYCHIATRIST Pulse 76 03/30/2019 2:21 PM FORENSIC PSYCHIATRIST Temperature 36.7 ??C (98 ??F) 03/30/2019 2:21 PM FORENSIC PSYCHIATRIST Respiratory Rate 16 03/30/2019 2:21 PM FORENSIC PSYCHIATRIST Oxygen Saturation 96% 03/30/2019 2:21 PM FORENSIC PSYCHIATRIST Inhaled Oxygen Concentration - - Weight 100.7 kg (222 lb) 03/30/2019 2:21 PM FORENSIC PSYCHIATRIST Height 182.9 cm (6') 03/30/2019 2:21 PM FORENSIC PSYCHIATRIST Body Mass Index 30.11 03/30/2019 2:21 PM FORENSIC PSYCHIATRIST Plan of Treatment Not on file Care Teams Patient Transport Officer Relationship Specialty Start Date End Date Coco Dukes MD PCP - General Family Medicine 03/30/19
== END 2024-06-16 12:29 | disposition home or self-care (01) ==
PROVIDERS: PCP Family Medicine; Referring Provider Student in an Organized Health Care Education/Training Program; Visit Provider Internal Medicine Gastroenterology
PROC: 0DJ08ZZ Inspection of Upper Intestinal Tract, Via Natural or Artificial Opening Endoscopic (ICD-10-PCS; CPT 43239; principal; 2024-06-16 11:30)
DX: K29.51 Unspecified chronic gastritis with bleeding (principal); K31.89 Other diseases of stomach and duodenum; E78.5 Hyperlipidemia, unspecified; G47.33 Obstructive sleep apnea (adult) (pediatric); I12.9 Hypertensive chronic kidney disease with stage 1 through stage 4 chronic kidney disease, or unspecified chronic kidney disease; N18.30 Chronic kidney disease, stage 3 unspecified; J44.9 Chronic obstructive pulmonary disease, unspecified; F41.9 Anxiety disorder, unspecified; H91.93 Unspecified hearing loss, bilateral; F12.90 Cannabis use, unspecified, uncomplicated; Z79.51 Long term (current) use of inhaled steroids; Z97.4 Presence of external hearing-aid; Z98.890 Other specified postprocedural states; Z82.49 Family history of ischemic heart disease and other diseases of the circulatory system
CPT/HCPCS: 43239; 88305; J2003; J2704; J7120